=== PATIENT | male | born 1945 | race Caucasian/White ===

== ENCOUNTER 2017-06-24 07:18 | Day surgery (SDC) | payer OTHER ==
[~2017-06-24] VITALS: Ht 163.8 cm; Wt 95.5 kg
[~2017-06-24 07:18] MED LIST: SODIUM CHLORIDE 0.9% 1,000 ML IV ONE
[2017-06-24] MEDS ORDERED: ALBUTEROL SULFATE 2.5 MG/0.5 ML NEB SOLUTION NEB ONE (07:19)
[2017-06-24] MEDS ORDERED: LIDOCAINE HCL 2% 5 ML JELLY TP ONE (07:19)
[2017-06-24] MEDS ORDERED: BENZOCAINE 20% 50 MCG/SPRAY 57 GM TP ONE (07:19)
[2017-06-24] MEDS ORDERED: MIDAZOLAM HCL 2 MG/2 ML VIAL ONE (07:38)
[2017-06-24] MEDS ORDERED: FentaNYL CITRATE-PF 100 MCG/2 ML VIAL ONE (07:38)
[2017-06-24] MEDS ORDERED: SODIUM CHLORIDE 0.9% 1,000 ML IV ONE (07:42)
[2017-06-24] MEDS ORDERED: FLUT16H NASAL (07:51)
[2017-06-24] MEDS ORDERED: FLUT220HFA IH (07:51)
[2017-06-24] MEDS ORDERED: MONT10TA21 PO (07:51)
[2017-06-24] MEDS ORDERED: ALBU8HFA IH (07:51)
[2017-06-24] MEDS ORDERED: MethylPREDNISolone SOD SUCC 125 MG/2 ML VIAL IVP ONE (09:00)
[2017-06-24] MEDS ORDERED: MethylPREDNISolone SOD SUCC 125 MG/2 ML VIAL ONE (09:51)
[2017-06-24] MEDS ORDERED: OXYGEN THERAPY IH SCH (20:00)
== END 2017-06-24 10:50 | disposition home or self-care (01) ==
LOC: SURGERY 07:18
PROVIDERS: ATTEND Internal Medicine Critical Care Medicine
DX: J38.4 Edema of larynx (principal); B37.0 Candidal stomatitis; J84.111 Idiopathic interstitial pneumonia, not otherwise specified; I48.91 Unspecified atrial fibrillation; G20 Parkinson's disease; Z87.891 Personal history of nicotine dependence; Z79.899 Other long term (current) drug therapy
CPT/HCPCS: 31623; 31624; 71045; 87015; 87070; 87205; 87220; 88108; 88312; 93005; J2250; J2930; J3010; J7030